=== PATIENT | male | born 1960 | race African-American/Black ===

== ENCOUNTER 2020-09-12 06:08 | Day surgery (SDC) | payer MEDICARE, OTHER ==
[2020-09-11 08:17] LABS: COVID AG,FIA SOURCE NASOPHARYNGEAL
[~2020-09-12 06:08] MED LIST: AZIT-84 PO; LORA-366 PO
[2020-09-12] MEDS ORDERED: SODIUM CHLORIDE 0.9% 1,000 ML ONE (06:11)
[2020-09-12] MEDS ORDERED: SODIUM CHLORIDE 0.9% 1,000 ML IV ONE (07:00)
[2020-09-12] MEDS ORDERED: EPINEPHrine 1:10,000 [1 MG/10 ML] SYRINGE ONE (07:17)
[2020-09-12] MEDS ORDERED: DiphenhydrAMINE HCL 50 MG/ML VIAL ONE (07:18)
[2020-09-12] MEDS ORDERED: ATROPINE SULFATE 0.1 MG/ML 10 ML SYRINGE IVP ONE (07:18)
[2020-09-12] MEDS ORDERED: NALOXONE HCL 0.4 MG/ML VIAL ONE (07:18)
[2020-09-12] MEDS ORDERED: FLUMAZENIL 0.1 MG/ML 5 ML VIAL IVP ONE (07:18)
[2020-09-12] MEDS ORDERED: SODIUM TETRADECYL SULFATE 3% 60 MG/2 ML VIAL IVP ONE (07:18)
[2020-09-12] MEDS ORDERED: FentaNYL CITRATE-PF 100 MCG/2 ML VIAL ONE (07:20)
[2020-09-12] MEDS ORDERED: MIDAZOLAM HCL 2 MG/2 ML VIAL ONE (07:20)
[2020-09-12] MEDS ORDERED: GABA-1216 PO (07:44)
[2020-09-12] MEDS ORDERED: ASPI-1227 PO (07:44)
[2020-09-12] MEDS ORDERED: LIPA1CAP18 PO (07:44)
[2020-09-12] MEDS ORDERED: MethylPREDNISolone SOD SUCC 125 MG/2 ML VIAL IVP ONE (09:00)
[2020-09-12] MEDS ORDERED: MethylPREDNISolone SOD SUCC 125 MG/2 ML VIAL ONE (09:22)
[2020-09-12] MEDS ORDERED: LIDOCAINE 2% 30 ML JELLY ONE (17:30)
[2020-09-12] MEDS ORDERED: BENZOCAINE 20% 50 MCG/SPRAY 57 GM ONE (17:30)
[2020-09-12] MEDS ORDERED: LIDOCAINE 4% 50 ML SOLUTION ONE (17:30)
[2020-09-12] MEDS ORDERED: ALBUTEROL SULFATE 2.5 MG/0.5 ML NEB SOLUTION NEB ONE (17:30)
[2020-09-12] MEDS ORDERED: OXYGEN THERAPY IH SCH (20:00)
== END 2020-09-12 10:30 | disposition home or self-care (01) ==
LOC: SURGERY 06:08
PROVIDERS: ATTEND Internal Medicine Critical Care Medicine
DX: R05 Cough (principal); R04.2 Hemoptysis; Z20.828 Contact with and (suspected) exposure to other viral communicable diseases; J34.89 Other specified disorders of nose and nasal sinuses; J98.8 Other specified respiratory disorders; J38.4 Edema of larynx; B37.0 Candidal stomatitis; I10 Essential (primary) hypertension; K21.9 Gastro-esophageal reflux disease without esophagitis; Z79.899 Other long term (current) drug therapy
CPT/HCPCS: 31623; 31624; 71045; 87015; 87070; 87101; 87205; 87206; 87220; 87426; 88108; 88312; 93005; C9803; J2250; J2930; J3010; J7030; J0171; J0461; J1200; J2310; J3490; J7613; Z7610